=== PATIENT | male | born 1940 | race Caucasian/White ===

== ENCOUNTER 2018-09-20 07:33 | Day surgery (SDC) | payer OTHER, BC ==
--- NOTE | 2018-08-09 11:58 | HP ---
DATE OF SURGERY: 09/20/2018 REASON FOR ADMISSION: Left inguinal hernia. BRIEF HISTORY: This is a 77-year-old gentleman who I had seen in January 2018, for a left inguinal hernia. This developed after a bad bout of coughing secondary to a sinus attack. The patient states he has occasional pain in the left groin, but since January, the pain has become less in intensity but still episodic in nature. PAST MEDICAL HISTORY: No coronary disease, hypertension, or diabetes. Patient has history of heart disease. He also has arthritic changes. PAST SURGICAL HISTORY: He was stented in 2006 and had a hip replacement in 2003 on the right. ALLERGIES: None. MEDICATIONS: Metoprolol, Lisinopril, Zocor, allopurinol, amlodipine, and a baby aspirin. SOCIAL HISTORY: Does not smoke. He drinks socially. PHYSICAL EXAMINATION: Abdomen: Soft, nontender, nondistended. He was examined in the erect and supine position, and multiple Valsalva maneuvers were performed. He has a fair amount of extra tissue/fat in both groins. He has no obvious hernia in the right but a fairly lax right inguinal floor. On the left, he clearly has a large left inguinal hernia which is easily appreciable in the erect position and in the supine position with Valsalva maneuvers. Genitalia: Scrotum and testicles within normal limits bilaterally. IMPRESSION/PLAN: Left inguinal hernia. This is a 77-year-old gentleman symptomatic from a left inguinal hernia. Golf season is over, and now, he wishes to have this hernia repaired. Patient will be scheduled for a laparoscopic left inguinal herniorrhaphy. At the time of laparoscopy, the right side will be examined since I think he probably has a small inguinal hernia. If it is identified, it will be repaired. If no hernia is noted on the right, a piece of mesh will be left in the direct inguinal space for reinforcement due to the significant laxity noticed on exam. Given the size of the hernia on the left, he may or may not develop a seroma which may or may not resolve. This was clearly explained to this patient at length. The indications, alternatives, and complications discussed; questions answered. We will plan to obtain written consent the day of surgery. MARY ANN ZHAO M.D. [id number] cc: Dr. Jesica DUPREE
[2018-09-20] MEDS ORDERED: TAMSULOSIN HCL 0.4 MG CAP ONE (07:54)
[2018-09-20] MEDS ORDERED: DEXAMETHASONE SOD PHOSPHATE/PF 10 MG/ML SDV ONE (09:00)
[2018-09-20] MEDS ORDERED: MIDAZOLAM HCL 2 MG/2 ML SINGLE DOSE VIAL ONE (09:01)
[2018-09-20] MEDS ORDERED: BUPIVACAINE HCL/PF (5 MG/ML) 30 ML VIAL IJ ONE (09:01)
[2018-09-20] MEDS ORDERED: ROCURONIUM BROMIDE 50 MG/5 ML VIAL ONE (09:34)
[2018-09-20] MEDS ORDERED: ceFAZolin SODIUM 1 GM VIAL ONE (10:04)
[2018-09-20] MEDS ORDERED: ONDANSETRON 4 MG/2 ML VIAL ONE (10:04)
[2018-09-20] MEDS ORDERED: DEXAMETHASONE SOD PHOSPHATE 4 MG/1 ML VIAL ONE (10:04)
[2018-09-20] MEDS ORDERED: NEOSTIGMINE METHYLSULFATE 0.5 MG/ML - 10 ML MDV ONE (10:19)
[2018-09-20] MEDS ORDERED: PROPOFOL 20 ML ONE (10:20)
[2018-09-20] MEDS ORDERED: KETOROLAC TROMETHAMINE 30 MG/1 ML VIAL ONE (10:37)
[2018-09-20] MEDS ORDERED: morphine SULFATE 4 MG/ML VIAL IVPB PRN (13:17)
[2018-09-20] MEDS ORDERED: oxyCODONE HCL 5 MG TABLET PO PRN (13:17)
[2018-09-20] MEDS ORDERED: ACETAMINOPHEN 325 MG TABLET (FP) PO PRN (13:17)
[2018-09-20] MEDS ORDERED: D5-1/2NS+20 MEQ KCL - 20 MEQ/1,000 ML INFUS.BAG IV SCH (13:30)
--- NOTE | 2018-09-20 14:49 | CON.CARD ---
Consult Consult Specialty:: Cardiology Referred by:: Dr. Dobbins, Dr. Tim Reason for Consultation:: Junctional bradycardia - History of Present Illness Chief Complaint: elective hernia surgery with junctional bradycardia post op History of Present Illness: 78 year old man with pmh HTN, HLD, CAD s/p stent 2011, hernia s/p elective laparoscopic hernia repair today noted to have junctional bradycardia postoperatively with pauses reportedly upwards of 11 seconds and multiple other short pauses. Pt was seen and examined in PACU in nad. currently sinus bradycardia 50-60bpm. pt is very active typically and denies any chest pain, sob , palpitations, ligththeadedness, dizziness, syncope, or near syncope. - History Source History Provided By: Patient, Family Member Limitations to Obtaining History: No Limitations - Past Medical History Cardio/Vascular: Yes: CAD, HTN, Hyperlipdemia - Past Surgical History Past Surgical History: Yes: Stent - Alcohol/Substance Use Hx Alcohol Use: Yes (occ) - Smoking History Smoking history: Never smoked Have you smoked in the past 12 months: No - Social History Usual Living Arrangement: With Spouse ADL: Independent History of Recent Travel: No Home Medications - Allergies Allergies/Adverse Reactions: Allergies Allergy/AdvReac Type Severity Reaction Status Date / Time No Known Allergies Allergy Verified 09/20/18 08:24 - Home Medications Home Medications: Ambulatory Orders Allopurinol [Zyloprim -] 100 mg PO DAILY 09/04/18 Amlodipine Besylate 5 mg PO DAILY 09/04/18 Aspirin [ASA -] 81 mg PO DAILY 09/04/18 Lisinopril 20 mg PO DAILY 09/04/18 Metoprolol Tartrate 50 mg PO BID 09/04/18 Simvastatin [Zocor -] 20 mg PO HS 09/04/18 Oxycodone HCl/Acetaminophen [Percocet 5-325 mg Tablet] 1 tab PO Q4H PRN #42 tablet MDD 6 09/20/18 Family Disease History - Family Disease History Family History: Denies Review of Systems - Review of Systems Constitutional: denies: No Symptoms, Chills, Diaphoresis, Fever, Lethargy, Loss of Appetite, Malaise, Night Sweats, Unintentional Wgt. Loss, Weakness, Other Eyes: denies: No Symptoms, Blind Spots, Blurred Vision, Double Vision, Eye Pain , Floaters, Photophobia, Recent Change in Vision, Other HENT: denies: No Symptoms, Difficult Swallowing, Ear Discharge, Ear Pain, Epistaxis, Gingival Bleeding, Hearing Loss, Mouth Swelling, Nasal Congestion, Ocular Prosthesis, Throat Pain, Toothache, Ringing in Ears, Other Neck: denies: No Symptoms, Decreased ROM, Lumps, Pain on Movement, Stiffness, Swollen Glands, Tenderness, Other Cardiovascular: denies: No Symptoms, Chest Pain, Edema, Palpitations, Shortness of Breath, Other Respiratory: denies: No Symptoms, Cough, Exercise Intolerance, Hemoptysis, Orthopnea, PND, Snoring, SOB, SOB on Exertion, Wheezing, Other Gastrointestinal: denies: No Symptoms, Abdominal Pain, Bloating, Constipation, Diarrhea, Dysphagia, Indigestion, Melena, Nausea, Rectal Bleeding, Vomiting, Vomiting Blood, Other Genitourinary: denies: No Symptoms, Burning, Discharge, Dysuria, Flank Pain, Frequency, Hematuria, Incontinence, Lesions, Menses, Pain, Testicular Mass, Testicular Pain, Testicular Swelling, Urgency, Vaginal Bleeding, Other Breasts: denies: No Symptoms Reported, See HPI, Breast Implants, Discharge from Nipple, Lumps, Pain, Skin Changes, Other Musculoskeletal: denies: No Symptoms, Back Pain, Crepitus, Decreased ROM, Extremity Pain, Joint Pain, Joint Swelling, Muscle Pain, Muscle Cramps, Muscle Weakness, Other Integumentary: denies: No Symptoms, Blister, Bruising, Change in Color, Eczema, Erythema, Incision, Lesions, Lump, Pallor, Pruritis, Rash, Wound, Other Neurological: denies: No Symptoms, Change in LOC, Change in Speech, Confusion, Dizziness, Headache, Incoordination, Numbness, Parasthesia, Pre-Existing Deficit , Seizure, Syncope, Tremors, Unsteady Gait, Weakness, Other Endocrine: denies: No Symptoms, Excessive Sweating, Flushing, Increased Hunger, Increased Thirst, Intolerance to Cold, Intolerance to Heat, Unexplained Weight Gain, Unexplained Weight Loss, Other Hematology/Lymphatic: denies: No Symptoms, Easily Bruised, Excessive Bleeding, Swollen Glands, Other Psychiatric: denies: No Symptoms, Altered Sleep Pattern, Anxiety, Depression, Hallucinations, Panic, Paranoia, Suicidal, Other - Risk Factors Known Risk Factors: Yes: Hypercholesterolemia, Hypertension Vital Signs: Vital Signs Temperature 97.6 F 09/20/18 12:45 Pulse Rate 54 L 09/20/18 14:00 Respiratory Rate 17 09/20/18 14:00 Blood Pressure 140/82 09/20/18 14:00 O2 Sat by Pulse Oximetry (%) 98 09/20/18 14:00 Constitutional: Yes: Well Nourished, No Distress, Calm Eyes: Yes: WNL, Conjunctiva Clear, EOM Intact HENT: Yes: WNL, Atraumatic, Normocephalic Neck: Yes: WNL, Supple, Trachea Midline Respiratory: Yes: WNL, Regular, CTA Bilaterally. No: Rales, Rhonchi, SOB, Wheezes Gastrointestinal: Yes: Normal Bowel Sounds, Tenderness. No: Distention Renal/: Yes: WNL Cardiovascular: Yes: Bradycardia. No: Regular Rate and Rhythm, Tachycardia, Pulse Irregular, Gallop, Rub, Varicosities, Other JVD: No Carotid Bruit: No PMI: Non-Displaced Heart Sounds: Yes: S1, S2. No: Split S2, S3, S4, Clicks, Gallop, Rub, Bruit Murmur: No: Systolic Murmur, Diastolic Murmur Musculoskeletal: Yes: WNL Extremities: Yes: WNL Edema: No Peripheral Pulses WNL: Yes Peripheral Pulses: 2+ Left Doralis Pedis, 2+ Right Dorsalis Pedis Neurological: Yes: Alert, Oriented Psychiatric: Yes: Alert, Oriented - Other Data post op sinus karoline 45bpm. rhythm strips reviewed nsr, sinus karoline, junctional karoline as low as 30bpm. no significant pauses recorded. Imaging - Results Chest X-ray: Report Reviewed, Image Reviewed EKG: Report Reviewed, Image Reviewed Other: Report Reviewed, Image Reviewed (tele-sinus karoline 50-60bpm) Assessment/Plan 78 year old man with pmh HTN, HLD, CAD s/p stent 2011, hernia s/p elective laparoscopic hernia repair today noted to have junctional bradycardia postoperatively with pauses reportedly upwards of 11 seconds and multiple other short pauses. Pt was seen and examined in PACU in nad. currently sinus bradycardia 50-60bpm. pt is very active typically and denies any chest pain, sob , palpitations, ligththeadedness, dizziness, syncope, or near syncope. Bradycardia-juntional rhythm post op in setting of abdominal insufflation for procedure, on metoprolol, normal resting HR 50-60s -post op sinus karoline 45bpm. rhythm strips reviewed nsr, sinus karoline, junctional karoline as low as 30bpm. no significant pauses recorded. -suspect likely vagal response -pt asymptomatic and currently at baseline sinus karoline 50-60s -no indication for pacing at this time. -if recurrent event overnight, use atropine and have external pacing pads available at bedside. -hold metoprolol -transfer to monitored setting at [facility], ICU -monitor tele overnight, if no further bradyarrhythmias pt can be discharged home in the morning -discussed with his outpatient manufacturing accountant Dr. Camarena who confirms that he has been doing well and resting HR is in 50-60s normally, he will follow up with him on discharge
--- NOTE | 2018-09-20 17:03 | CONSULT ---
Consultation: REQUESTING PROVIDER: CONSULT REQUEST: We have been asked to medically evaluate this patient ( bradycardia post op-ICU admission). PCP: Dr. Mooney. Director Revenue: Dr. Camarena ([facility]) HISTORY OF PRESENT ILLNESS: Patient is a 78 year old male was admitted at [facility] for an elective B/L inguinal hernia repair, went into bradycardia to 30's with 11 second pause in PACU, hence transferred to ICU for further monitoring. Was seen by Dr. Nicolas in PACU, HR improved to 50's-60's and was recommended to be be monitored. As per the patient, he remembers waking up from anesthesia and was told about the pause, but he was asymptomatic. Patient has been on Metoprolol 50mg PO BID for years and took one dose this morning. Patient saw his accounting clerks supervisor a week ago and was told everything is normal. He states that he had a hernia since 8 months, saw Dr. Dobbins and was sent today for the elective repair. Prior to the surgery and post op, he denies Chest pain, SOB, Palpitations, cough , abdominal pain, nausea or vomiting. Bowel/Bladder habit normal. Sleep/Appetite normal prior to his illness. PAST MEDICAL HISTORY: Hypertension, HLD, CAD s/p stent in 2006 at [facility], Gout ALLERGIES: NKDA PAST SURGICAL HISTORY: Right Hip replacement 15 yrs ago, tonsillectomy SOCIAL: Lives at home with his . Very active, goes to gym daily, plays Golf and Skies. Smoking: Denies Alcohol: Occasional, last drink a week ago- 1 glass of wine Drugs: Denies Travel: No recent travel OCCUPATION: Retired physical educator. REVIEW OF SYSTEMS: CONSTITUTIONAL: Absent: fever, chills, diaphoresis, generalized weakness, malaise, loss of appetite, weight change HEENT: Absent: rhinorrhea, nasal congestion, throat pain, throat swelling, difficulty swallowing, mouth swelling, ear pain, eye pain, visual changes CARDIOVASCULAR: Absent: chest pain, syncope, palpitations, irregular heart rate, lightheadedness , peripheral edema RESPIRATORY: Absent: cough, shortness of breath, dyspnea with exertion, orthopnea, wheezing, stridor, hemoptysis GASTROINTESTINAL: Absent: abdominal pain, abdominal distension, nausea, vomiting, diarrhea, constipation, melena, hematochezia GENITOURINARY: Absent: dysuria, frequency, urgency, hesitancy, hematuria, flank pain, genital pain MUSCULOSKELETAL: Absent: myalgia, arthralgia, joint swelling, back pain, neck pain SKIN: Absent: rash, itching, pallor HEMATOLOGIC/IMMUNOLOGIC: Absent: easy bleeding, easy bruising, lymphadenopathy, frequent infections ENDOCRINE: Absent: unexplained weight gain, unexplained weight loss, heat intolerance, cold intolerance NEUROLOGIC: Absent: headache, focal weakness or paresthesias, dizziness, unsteady gait, seizure, mental status changes, bladder or bowel incontinence PSYCHIATRIC: Absent: anxiety, depression, suicidal or homicidal ideation, hallucinations. PHYSICAL EXAMINATION Vital Signs - 24 hr 09/20/18 09/20/18 09/20/18 08:26 08:34 11:00 Temperature 97.6 F Pulse Rate 46 L 89 Respiratory 16 12 Rate Blood Pressure 137/72 116/72 O2 Sat by Pulse 95 95 98 Oximetry (%) 09/20/18 09/20/18 09/20/18 11:05 11:10 11:15 Temperature Pulse Rate 51 L 64 52 L Respiratory 16 18 16 Rate Blood Pressure 136/69 105/78 104/81 O2 Sat by Pulse 98 97 98 Oximetry (%) 09/20/18 09/20/18 09/20/18 11:30 11:45 12:00 Temperature 97.6 F Pulse Rate 52 L 52 L 55 L Respiratory 17 16 17 Rate Blood Pressure 121/65 111/71 116/61 O2 Sat by Pulse 96 96 96 Oximetry (%) 09/20/18 09/20/18 09/20/18 12:15 12:30 12:45 Temperature 97.6 F 97.6 F Pulse Rate 55 L 54 L 54 L Respiratory 17 16 16 Rate Blood Pressure 127/67 128/80 128/80 O2 Sat by Pulse 94 L 96 96 Oximetry (%) 09/20/18 09/20/18 09/20/18 13:00 13:30 14:00 Temperature Pulse Rate 54 L 49 L 54 L Respiratory 16 16 17 Rate Blood Pressure 123/63 131/69 140/82 O2 Sat by Pulse 98 100 98 Oximetry (%) 09/20/18 09/20/18 15:00 16:00 Temperature 98 F Pulse Rate 61 61 Respiratory 18 18 Rate Blood Pressure 124/71 124/71 O2 Sat by Pulse 97 Oximetry (%) GENERAL: Elderly male, sitting comfortably in bed, Awake, alert, and fully oriented, in no acute distress. HEAD: Normal with no signs of trauma. EYES: EOM intact, no pallor or icterus. EARS, NOSE, THROAT: Ears normal. Dry mucous membranes. NECK: Supple. LUNGS: B/L breath sounds equal, clear to auscultation bilaterally. No wheezes, and no crackles. No accessory muscle use. HEART: Regular rate and rhythm, normal S1 and S2 without murmur. ABDOMEN: Two laparoscopic incisions-area looks clean, Soft, nontender, deep palpation couldn't be done due to recent surgery. MUSCULOSKELETAL: Normal range of motion at all joints. No bony deformities or tenderness. No CVA tenderness. UPPER EXTREMITIES: 2+ pulses, warm, well-perfused. No cyanosis. No clubbing. Cap refill <2 seconds. No peripheral edema. LOWER EXTREMITIES: 2+ pulses, warm, well-perfused. No calf tenderness. No peripheral edema. NEUROLOGICAL: No facial droop. Normal speech. Gait not observed. PSYCHIATRIC: Cooperative. Good eye contact. Appropriate mood and affect. SKIN: Warm, dry, normal turgor, no rashes or lesions noted. Active Medications Generic Name Dose Route Start Last Admin Trade Name Freq PRN Reason Stop Dose Admin Acetaminophen 650 mg 09/20/18 13:17 Tylenol - PO Q4H PRN FEVER Enoxaparin Sodium 40 mg 09/21/18 10:00 Lovenox - SQ DAILY [facility] Potassium Chloride/Dextrose/Sod Cl 20 meq in 1,000 mls @ 75 mls/hr 09/20/18 13 :30 D5-1/2ns+20 Meq Kcl - IV ASDIR [facility] Morphine Sulfate 4 mg 09/20/18 13:17 Morphine Sulfate IVPB Q3H PRN PAIN LEVEL 7 - 10 Oxycodone HCl 7.5 mg 09/20/18 13:17 Roxicodone - PO Q4H PRN PAIN LEVEL 4 - 6 Pantoprazole Sodium 40 mg 09/21/18 10:00 Protonix Iv IVPUSH DAILY [facility] ASSESSMENT/PLAN: Patient is a 78 year old male with past medical history of was admitted at [facility] for an elective B/L inguinal hernia repair, went into bradycardia to 30's with 11 second pause in PACU, hence transferred to ICU for further monitoring. Cardio Asymptomatic sinus bradycardia -resolved likely from the anesthesia vs vasovagal response. Now HR is between 80-85 bpm Continuous cardiac monitoring. External pacing pads at bedside. Will hold Metoprolol. EKG in AM Hypertension Will hold Metoprolol due to bradycardia Hyperlipidemia Continue Lipitor GI POD-0 s/p b/l inguinal hernia repair No Post op complications F/up with Dr. Dobbins as outpatient. Neuro/Uro/Endo/Renal no active issues. Stat labs ordered: CBC, CMP, UA. FEN D5-1/2 NS + 20 Meq @ 75 mls/hr Electrolytes WNL Regular Diet Prophylaxis For DVT: On Lovenox 40 mg sq daily For GI: On Protonix 40 IV Daily Code Status: Full Code Illness, Investigation and Plan of care explained to the patient. He verbalized understanding. Dispo: We will continue to follow the patient. Thank you for this consultative opportunity. Visit type - Emergency Visit Emergency Visit: Yes Care time: The patient presented to the Emergency Department on the above date and was hospitalized for further evaluation of their emergent condition. - New Patient This patient is new to me today: Yes Date on this admission: 09/20/18 - Critical Care Critical Care patient: Yes Total Critical Care Time (in minutes): 35 Critical Care Statement: The care of this patient involved high complexity decision making to prevent further life threatening deterioration of the patient 's condition and/or to evaluate & treat vital organ system(s) failure or risk of failure.
[2018-09-20 18:20] VITALS: BMI 26.0
[2018-09-20 21:45] LABS: HEMATOCRIT 40.1 % (35.4-49); MCH 28.4 pg (25.7-33.7); MCHC 34.9 g/dl (32.0-35.9); MEAN CELL VOLUME 81.5 fl (80-96); MEAN PLT VOLUME 9.2 fl (7.5-11.1); PLATELET COUNT 204 K/MM3 (134-434); RBC 4.92 M/mm3 (4.00-5.60); WHITE BLOOD COUNT 10.6 K/mm3 (4.0-10.0)
[2018-09-20] MEDS ORDERED: ATORVASTATIN CA 10 MG TABLET (FP) PO SCH (22:00)
[2018-09-20 22:27] LABS: ALBUMIN 3.4 g/dl (3.4-5.0); ALK PHOS 75 U/L (45-117); ANION GAP 9 MMOL/L (8-16); BILIRUBIN,TOTAL 0.3 mg/dL (0.2-1); BLOOD UREA NITROGEN 24 mg/dL (7-18); CALCIUM 8.5 mg/dL (8.5-10.1); CHLORIDE 106 mmol/L (98-107); CO2 25 mmol/L (21-32); CREATININE 1.2 mg/dL (0.55-1.3); GLUCOSE,RANDOM 190 mg/dL (74-106); POTASSIUM 4.1 mmol/L (3.5-5.1); SGOT/AST 16 U/L (15-37); SGPT/ALT 23 U/L (13-61); SODIUM 141 mmol/L (136-145); TOT PROT 6.3 g/dl (6.4-8.2)
[2018-09-21 06:48] LABS: ALBUMIN 3.3 g/dl (3.4-5.0); ALK PHOS 76 U/L (45-117); ANION GAP 7 MMOL/L (8-16); BILIRUBIN,TOTAL 0.4 mg/dL (0.2-1); BLOOD UREA NITROGEN 27 mg/dL (7-18); CALCIUM 8.6 mg/dL (8.5-10.1); CHLORIDE 108 mmol/L (98-107); CO2 25 mmol/L (21-32); CREATININE 1.1 mg/dL (0.55-1.3); GLUCOSE,RANDOM 145 mg/dL (74-106); MAGNESIUM 2.1 mg/dL (1.8-2.4); PHOSPHOROUS 4.1 mg/dL (2.5-4.9); POTASSIUM 4.1 mmol/L (3.5-5.1); SGOT/AST 15 U/L (15-37); SGPT/ALT 21 U/L (13-61); SODIUM 140 mmol/L (136-145); TOT PROT 6.2 g/dl (6.4-8.2)
--- NOTE | 2018-09-21 07:49 | PN ---
Physical Exam: SUBJECTIVE: Patient seen and examined at bedside. Pt has no complaints. Denies chest pain, sob, f/c, n/v. Has mild abd pain, but pain controlled. OBJECTIVE: Vital Signs Period Temp Pulse Resp BP Sys/Lindquist Pulse Ox Last 24 Hr 97.6 F-98.4 F 46-89 12-19 104-144/61-82 93-100 GENERAL: AAOx3. NAD. Sitting comfortably in chair. HEENT: AT/NC. EOMI. GEMINI. Moist mucus membranes. NECK: Supple, no LAD/JVD. LUNGS: CTA B/L. No wheezes noted. Symmetric chest rise. HEART: RRR. Normal S1, S2. No murmurs. ABDOMEN: Soft, mildly tender. ND. +BS in all 4Qs. EXTREMITIES: 2+ pulses, warm, well-perfused, no edema. NEUROLOGICAL: Cranial nerves II through XII grossly intact. Normal speech. PSYCH: Normal mood, normal affect. SKIN: Warm, dry, normal turgor, no rashes or lesions noted Laboratory Results - last 24 hr 09/20/18 09/20/18 09/21/18 21:00 21:00 05:30 WBC 10.6 H RBC 4.92 Hgb 14.0 Hct 40.1 MCV 81.5 MCH 28.4 MCHC 34.9 RDW 15.0 Plt Count 204 MPV 9.2 Sodium 141 140 Potassium 4.1 4.1 Chloride 106 108 H Carbon Dioxide 25 25 Anion Gap 9 7 L BUN 24 H 27 H Creatinine 1.2 1.1 Creat Clearance w eGFR 58.71 > 60 Random Glucose 190 H 145 H Calcium 8.5 8.6 Phosphorus 4.1 Magnesium 2.1 Total Bilirubin 0.3 0.4 AST 16 15 ALT 23 21 Alkaline Phosphatase 75 76 Total Protein 6.3 L 6.2 L Albumin 3.4 3.3 L Active Medications Generic Name Dose Route Start Last Admin Trade Name Freq PRN Reason Stop Dose Admin Acetaminophen 650 mg 09/20/18 13:17 Tylenol - PO Q4H PRN FEVER Allopurinol 100 mg 09/21/18 10:00 Zyloprim - PO DAILY [facility] Atorvastatin Calcium 10 mg 09/20/18 22:00 09/20/18 23:00 Lipitor - PO 10 mg HS [facility] Administration Enoxaparin Sodium 40 mg 09/21/18 10:00 Lovenox - SQ DAILY [facility] Potassium Chloride/Dextrose/Sod Cl 20 meq in 1,000 mls @ 75 mls/hr 09/20/18 13 :30 09/20/18 17:21 D5-1/2ns+20 Meq Kcl - IV Not Given ASDIR [facility] Morphine Sulfate 4 mg 09/20/18 13:17 Morphine Sulfate IVPB Q3H PRN PAIN LEVEL 7 - 10 Oxycodone HCl 7.5 mg 09/20/18 13:17 Roxicodone - PO Q4H PRN PAIN LEVEL 4 - 6 Pantoprazole Sodium 40 mg 09/21/18 10:00 Protonix Iv IVPUSH DAILY [facility] ASSESSMENT/PLAN: 78M w/ pmhx of HTN, HLD, CAD s/p stent 2011, s/p elective hernia repair POD#1 admitted episode of post-op junctional bradycardia. Neurology -Stable. AAOx3. NAD. Pulmonary -IS Cardiology #CAD s/p sten -hold Metoprolol for now -ESR showed NSR with PAC; no acute events on tele overnight. Pt asymptomatic. -follow up with outpatient cardio #HTN -cont Lisinopril and Amlodipine #HLD -cont Lipitor GI #s/p elective hernia repair -Stable. No complications. -F/u with surg for post op follow up. -pain meds per primary dispo -Spoke to surg, OK to dc to home. Pt currently stable. Cardio also made aware and agreed with dc. Visit type - Emergency Visit Emergency Visit: Yes Care time: The patient presented to the Emergency Department on the above date and was hospitalized for further evaluation of their emergent condition. - New Patient This patient is new to me today: Yes Date on this admission: 09/21/18 - Critical Care Critical Care patient: Yes Total Critical Care Time (in minutes): 36 Critical Care Statement: The care of this patient involved high complexity decision making to prevent further life threatening deterioration of the patient 's condition and/or to evaluate & treat vital organ system(s) failure or risk of failure.
[2018-09-21 08:43] VITALS: TEMP 98.4
[2018-09-21] MEDS ORDERED: ALLOPURINOL 100 MG TABLET (FP) PO SCH (10:00)
[2018-09-21] MEDS ORDERED: PANTOPRAZOLE SODIUM 40 MG VIAL IVPUSH SCH (10:00)
[2018-09-21] MEDS ORDERED: ASPIRIN 81 MG CHEWABLE TABLETS PO SCH (10:00)
[2018-09-21] MEDS ORDERED: ENOXAPARIN NA (PORCINE) 40 MG/0.4 ML DISP.SYRIN SQ SCH (10:00)
[2018-09-21 10:02] VITALS: PULSE 71
--- NOTE | 2018-09-21 11:04 | OP ---
DATE OF OPERATION: 09/20/2018 PREOPERATIVE DIAGNOSIS: Left inguinal hernia. POSTOPERATIVE DIAGNOSES: Left pantaloon inguinal hernia, right indirect inguinal hernia. PROCEDURE: Bilateral laparoscopic herniorrhaphy with mesh. SURGEON: Mauricio Dobbins MD MD SENIOR RESEARCH SCIENTIST: Pedro Godfrey MD ANESTHESIA: Brendan Cabrera MD (general). ESTIMATED BLOOD LOSS: Minimal. SPECIMEN: None. INDICATION FOR PROCEDURE: This is a 78-year-old gentleman with discomfort and a bulge in the left groin. His left inguinal hernia is bothering him and therefore he wished to have this repaired. Patient identified and appropriately positioned on the operating room table. After placement of general anesthesia, the abdomen prepped and draped in the usual sterile fashion with ChloraPrep. An infraumbilical incision made, deepened through subcutaneous tissue. The fascia of the rectus muscle on the left identified. The muscle split under direct vision. A dissector balloon followed by a structural balloon placed. Also, under direct vision, a suprapubic 11-mm port placed. The following structures on the left side identified: Pubic tubercle, Cipriano ligament, inferior epigastric vessels, spermatic cord, and lateral abdominal wall. He had an incarcerated direct inguinal hernia containing fat; this was reduced back into preperitoneal space. He had a small indirect inguinal hernia reduced back into preperitoneal space, as well. A 4.5 x 6 piece of Versatex was keyholed and placed through the suprapubic port site. The mesh wrapped around the cord structures lightly to reconstruct the internal ring. Laterally, the mesh anchored to anterior abdominal wall and lateral abdominal wall. Medially, the mesh anchored to anterior abdominal wall, pubic tubercle, and Cipriano ligament. Upon completion of the left side, similar structures on the right side identified. On the right side, he had no direct component, but he had a small indirect inguinal hernia. This was reduced back into the preperitoneal space with blunt dissection. Another 4.5 x 6 piece of Versatex mesh was keyholed and placed through the suprapubic port site. The mesh wrapped around the cord structures lightly to reconstruct the internal ring. Laterally, the mesh anchored to the anterior abdominal wall, lateral abdominal wall. Medially, mesh below the left in the midline anchored to the anterior abdominal wall, pubic tubercle, and Cipriano ligament. All anterior abdominal wall and lateral abdominal wall anchors placed under direct counter palpation. The mesh used was Versatex and the anchoring system AbsorbaTack. The fascia at both port sites reapproximated with interrupted 0-Vicryl suture. All skin closed with 4-0 subcuticular Biosyn followed by Dermabond. At the conclusion of this case, sponge counts were correct. ATTESTATION: Brief OP note handwritten on the preprinted form. [facility] will be queried prior to giving any narcotics. Shruthi MITCHELL [id number] Cc: Skyler Mooney M.D. MTDLy
[2018-09-21 11:19] VITALS: BP 130/77
[2018-09-21] MEDS ORDERED: DOCUSATE SODIUM 100 MG CAPSULE (FP) PO ONE (11:21)
--- NOTE | 2018-09-21 11:57 | EKG ---
Test Reason : Blood Pressure : / mmHG Vent. Rate : 070 BPM Atrial Rate : 070 BPM P-R Int : 188 ms QRS Dur : 092 ms QT Int : 424 ms P-R-T Axes : 042 -04 010 degrees QTc Int : 457 ms SINUS RHYTHM WITH PREMATURE ATRIAL COMPLEXES MODERATE VOLTAGE CRITERIA FOR LVH, MAY BE NORMAL VARIANT BORDERLINE ECG WHEN COMPARED WITH ECG OF 20-SEP-2018 11:14, PREMATURE ATRIAL COMPLEXES ARE NOW PRESENT NONSPECIFIC T WAVE ABNORMALITY HAS REPLACED INVERTED T WAVES IN INFERIOR LEADS Confirmed by NIALL FLETCHER MD ([id number]) on 09/21/2018 11:57:09 AM Referred By: Mauricio Dobbins Confirmed By:NIALL FLETCHER MD
--- NOTE | 2018-09-21 12:22 | PN ---
Teaching Attending Note Name of Resident: Carolann Valadez ATTENDING PHYSICIAN STATEMENT I saw and evaluated the patient. I reviewed the resident's note and discussed the case with the resident. I agree with the resident's findings and plan as documented. SUBJECTIVE: Pt seen and examined in the ICU. No further bradycardia or pauses. Feels well. OBJECTIVE: Vital Signs Period Temp Pulse Resp BP Sys/Lindquist Pulse Ox Last 24 Hr 97.6 F-98.4 F 49-72 16-19 118-151/63-86 93-100 Intake & Output 09/18/18 09/19/18 09/20/18 09/21/18 23:59 23:59 23:59 23:59 Intake Total 3120 490 Output Total 1100 800 Balance 2019 Weight 82.282 kg Gen: NAD at rest Heart: RRR Lung: decreased breath sounds at the bases Abd: soft, nontender Ext: no edema CBC, BMP 09/20/18 21:00 09/21/18 05:30 ASSESSMENT AND PLAN: s/p Hernia Repair Bradycardia resolved CAD HTN Hyperlipidemia - pain control - incentive spirometry - resume cardiac meds - outpt cardiology f/u - can d/c home
--- NOTE | 2018-09-21 15:28 | EKG ---
Test Reason : Blood Pressure : / mmHG Vent. Rate : 048 BPM Atrial Rate : 048 BPM P-R Int : 198 ms QRS Dur : 092 ms QT Int : 508 ms P-R-T Axes : 031 -10 -11 degrees QTc Int : 453 ms SINUS BRADYCARDIA WITH MARKED SINUS ARRHYTHMIA VOLTAGE CRITERIA FOR LEFT VENTRICULAR HYPERTROPHY ABNORMAL ECG NO PREVIOUS ECGS AVAILABLE Confirmed by CHANCE MAGUIRE, NIALL ([id number]) on 09/21/2018 3:28:18 PM Referred By: Mauricio Dobbins Confirmed By:NIALL FLETCHER MD
== END 2018-09-21 11:45 | disposition home or self-care (01) ==
LOC: FASU 07:33 → JICU 16:36 → FASU 09-21 11:45
PROVIDERS: ATTEND Surgery
PROC: 0YUA4JZ Supplement Bilateral Inguinal Region with Synthetic Substitute, Percutaneous Endoscopic Approach (ICD-10-PCS; principal; 2018-09-20 09:00)
DX: K40.20 Bilateral inguinal hernia, without obstruction or gangrene, not specified as recurrent (principal); I97.191 Other postprocedural cardiac functional disturbances following other surgery; R00.1 Bradycardia, unspecified; I10 Essential (primary) hypertension; E78.5 Hyperlipidemia, unspecified; I25.10 Atherosclerotic heart disease of native coronary artery without angina pectoris; Z95.5 Presence of coronary angioplasty implant and graft; Z79.82 Long term (current) use of aspirin
CPT/HCPCS: 36415; 80048; 80053; 83735; 84100; 85027; 93005; 93010; 94760